=== PATIENT | male | born 1980 | race Caucasian/White ===

== ENCOUNTER 2024-10-22 08:21 | Day surgery (SDC) | payer OTHER, SELFPAY ==
[2024-10-16 10:55] VITALS: BMI 29.2
[2024-10-22] VITALS (9 sets, daily range): BP systolic 113–147; BP diastolic 69–101; PULSE 76–95; RESP 12–19; TEMP 36.3–36.4; O2SAT 94–98; BMI 28.8
--- NOTE | 2024-10-22 08:48 | P.HP_ITS ---
History of Present Illness History of Present Illness Date Patient Seen: 10/22/24 Time Patient Seen: 08:48 Chief complaint: Bilateral Laparoscopic Inguinal Hernia Repair Narrative: 44 y.o healthy male here for elective laparoscopic bilateral inguinal hernia repair. No interval change in health since last seen July 2024. [facility] Medical History Clavicle fracture Hernia Surgical History H/O pyloromyotomy H/O bone graft Family History Father Hypertension Stroke Cancer Grandfather Heart disease Mother Gallstones Social History marital status: number of children: 3 household members: spouse and children lives independently: Yes occupational status: employed Smoking Status: Never smoker alcohol intake: current substance use type: does not use Meds Home Medications and Allergies Home Medications Medication Instructions Recorded Confirmed Type Pre-probiotic PO 07/24/24 History psyllium husk [Daily Fiber] PO 07/24/24 07/24/24 History Allergies Allergy/AdvReac Type Severity Reaction Status Date / Time No Known Drug Allergies Allergy Verified 10/22/24 08:40 Exam Narrative Exam Narrative: Gen-Adult man alert and oriented Abdomen-Soft non tender Assessment & Plan Assessment and plan (1) Bilateral inguinal hernia: Qualifiers: Obstruction and gangrene presence: without obstruction or gangrene Recurrence: non-recurrent Qualified Code(s): K40.20 - Bilateral inguinal hernia, without obstruction or gangrene, not specified as recurrent Status: Acute Assessment & Plan narrative: 44 y.o healthy man with symptomatic reducible bilateral inguinal hernia here for elective laparoscopic bilateral repair. Overview of the operation once again reviewed. We again reviewed operative risks benefits postoperative recovery. His questions have been answered. He provides informed consent to proceed Time-Based Coding :: [TOTAL MINUTES] spent with patient and on the chart (including review of chart, obtaining history, exam, reviewing outside data, placing orders, documenting exam and treatment plan, and counseling patient) on [DATE].
[2024-10-22] MEDS: LACTATED RINGERS 1,000 ML 42 ML IV ×2 (09:02→10:33)
[2024-10-22] MEDS: ACETAMINOPHEN 325 MG TABLET 975 MG PO (09:03)
[2024-10-22] MEDS: FAMOTIDINE 20 MG/2 ML VIAL IV (09:04)
[2024-10-22] MEDS: CEFAZOLIN 2 GM/100 ML PREMIX 100 ML IV (09:16)
[2024-10-22] MEDS: BUPIVACAINE 0.25% (PF) VIAL 30 ML INJ (09:37)
[2024-10-22] MEDS: KETOROLAC 30 MG/ML VIAL 15 MG IV (11:04)
[2024-10-22] MEDS: MEPERIDINE 50 MG/ML INJ 12.5 MG IV (11:09)
--- NOTE | 2024-10-22 11:09 | P.OP_ITS ---
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 No direct defect Specimen(s): none sent Estimated Blood Loss (mL): 30 Procedure in detail: The patient was brought to the operating room and placed supine on the table. Bilateral sequential compression devices were applied. General anesthesia was induced and they were intubated with an endotracheal tube. A winston catheter was placed in sterile fashion. They received 2 g Ancef prior to skin incision. They were prepped and draped in sterile fashion. A time out was performed to ensure the correct patient, procedure and necessary equipment within the operating room. The skin was infiltrated with 0.25% bupivicaine. A 1 cm supra umbilical midline incision was made. The fascia was sharply incised and the abdomen entered traumatically. A 10mm balloon port was placed and pneumoperitoneum was established at 15mm Hg. Inspection of the abdomen demonstrated no evidence of injury upon entry. Two 5 mm ports were then placed under direct visualization in the right and left lower quadrant lateral to the rectus muscle. Bilateral indirect inguinal hernias were observed. There were adhesions between the sigmoid colon and the left pelvic side wall which were carefully dissected. Starting on the left side the peritoneum 4 cm superior to the deep inguinal ring between the medial umbilical ligament and the anterior superior iliac spine was incised. The medial preperitoneal dissection was carried out into the space of Retzius bluntly, the bladder was swept inferiorly, the pubis and Ace's ligament were identified. Next attention was turned towards the lateral aspect of the peritoneal flap. The preperitoneal fat with the testicular vessels was carefully dissected off the inferior peritoneal flap. The cord was carefully inspected there was a indirect hernia sac which was skeltonized off the cord preserving the testicular vessels and the vas deferns. No direct floor defect identified. A large Bard 3D Max mesh was then placed into the abdomen and positioned such that the myopectineal orifice was completely covered with good overlap on all sides. The peritoneal flap was then repositioned back to its original position and a running V lock suture was used to close the peritoneum such that no bowel could herniate into the preperitoneal space. The area was examined for hemostasis. Next the right side was addressed. The peritoneum 4 cm superior to the deep inguinal ring between the medial umbilical ligament and the anterior superior iliac spine was incised. The medial preperitoneal dissection was carried out into the space of Retzius bluntly, the bladder was swept inferiorly, the pubis and Ace's ligament were identified. Next attention was turned towards the lateral aspect of the peritoneal flap. The preperitoneal fat with the testicular vessels was carefully dissected off the inferior peritoneal flap. The cord was carefully inspected there was a indirect hernia sac which was skeletonized off of the cord structures.NO direct floor defect identified. A large Bard 3D Max mesh was then placed into the abdomen and positioned such that the myopectineal orifice was completely covered with good overlap on all sides. The peritoneal flap was then repositioned back to its original position and a running V lock suture was used to close the peritoneum such that no bowel could herniate into the preperitoneal space. The area was examined for hemostasis. The 5mm trocars were removed under direct visualization and pneumoperitoneum was deflated through the umbilical trocar, The fascia at the umbilicus was closed with 0-Vicryl in figure of 8 fashion, skin closed with 4-0 Monocyl followed by Dermabond. The sponge and instrument count at the end of the case was correct. Both testicles were entirely within the scrotum at the end of the case. The patient emerged from anesthsia was extubated and transferred to recovery in stable condition. Complications: none Post-operative Condition: stable Disposition: same day surgery
[2024-10-22] MEDS: hydrOXYzine 50 MG/ML INJ 25 MG IM (11:12)
[2024-10-22] MEDS: OXYCODONE IR 5 MG TABLET PO (11:12)
== END 2024-10-22 12:19 | disposition home or self-care (01) ==
PROVIDERS: Referring Provider Surgery; Visit Provider Surgery
PROC: 0YQ64ZZ Repair Left Inguinal Region, Percutaneous Endoscopic Approach (ICD-10-PCS; CPT 49650; principal; 2024-10-22 10:00)
DX: K40.20 Bilateral inguinal hernia, without obstruction or gangrene, not specified as recurrent (principal)
CPT/HCPCS: 49650; J0690; J1100; J1171; J1885; J2175; J2250; J2405; J2704; J3010; J3410; J3490